=== PATIENT | male | born 1955 | race Caucasian/White ===

== ENCOUNTER 2017-03-23 15:06 | Emergency (ER) | payer OTHER ==
[~2017-03-23] VITALS: Ht 175.3 cm; Wt 89.8 kg
--- NOTE | 2017-03-23 16:09 | ED DYSPNEA/ASTHMA COMPLAINT ---
History of Present Illness General Chief Complaint: Upper Respiratory Sx/Fever Stated Complaint: URI Source: patient Exam Limitations: no limitations Vital Signs & Intake/Output Vital Signs & Intake/Output Vital Signs Date Time Temp Pulse Resp B/P B/P Pulse O2 O2 Flow FiO2 Mean Ox Delivery Rate 03/23 1859 98.0 100 18 147/78 97 Room Air 03/23 1733 98 03/23 1701 98 03/23 1629 Room Air 03/23 1511 97.9 106 18 147/80 96 Room Air Allergies Coded Allergies: acetaminophen (Intermediate, NAUSE 03/23/17) hydrocodone (Intermediate, NAUSEA 03/23/17) Reconcile Medications Codeine Phosphate/Guaifenesi (Cheratussin AC Syrup) 10 MG-100 MG/5 ML LIQUID 10 ML PO Q6H PRN COUGH Doxycycline Hyclate 100 MG TABLET 1 TAB PO BID PRN BRONCHITIS Duloxetine HCl 60 MG CAPSULE. 1 CAP PO DAILY ANXIETY (Reported) Hydrocodone/Chlorphen P-Stirex (Hydrocodone-Chlorphen ER Susp) 10 MG-8 MG/5 ML KYLE.ER.12H 5 ML PO BID PRN COUGH Prednisone 50 MG TABLET 1 TAB PO DAILY bronchitis Triage Note: 61 YO MALE TO [facility] C/O PRODUCTIVE COUGH AND HEADACHE X2 WEEKS. STATES HE WAS ON ANTIBITOCS FROM HIS PCP BUT STILL NOT ANY BETTER. AFEBRILE. Triage Nurses Notes Reviewed? yes Onset: Abrupt Duration: week(s): (2), changing over time, continues in ED, getting worse Timing: single episode today Severity: moderate, severe Activities at Onset: none Prior Episodes/Possible Cause: occasional episodes Associated Symptoms: cough, wheezing, Headache HPI: 61-year-old male with no past medical history presents for evaluation of cough, congestion, headaches and wheezing over the past 2 weeks. Patient states that he was seen by his primary care doctor last week for the same symptoms. He is placed on a Z-Frandy and given cough medicine without any improvement. He states that the cough is productive of sputum and is worse at night causing difficulty sleeping. He also reports headaches from coughing so much. He is a nonsmoker and denies any history of asthma or COPD. He does report that usually once a year he gets an episode of severe bronchitis. He has an albuterol inhaler at home which she has been using every 4 hours without improvement. No hemoptysis, chest pain, fever, lower extremity edema or any other associated symptoms. No recent surgery recent trauma. (Nathan Stout) Past History Travel History Traveled to [place] past 21 day No Medical History Any Pertinent Medical History? see below for history Neurological: NONE EENT: NONE Cardiovascular: NONE Respiratory: NONE Gastrointestinal: NONE Hepatic: NONE Renal: NONE Musculoskeletal: NONE Psychiatric: NONE Endocrine: NONE Blood Disorders: NONE Cancer(s): NONE TOBACCO CLASSER/Reproductive: NONE Pneumonia Vaccine: 01/03/10 Surgical History Surgical History: non-contributory Psychosocial History Who do you live with Patient/Self Services at Home None What is your primary language Lebanese Tobacco Use: Current Daily Use Daily Tobacco Use Amount/Type: =< 4 Cigarettes daily Family History Hx Contributory? No (Nathan Stout) Review of Systems Review of Systems Constitutional: Reports: no symptoms. EENTM: Reports: no symptoms. Respiratory: Reports: see HPI, cough, sputum production, wheezing. Cardiovascular: Reports: no symptoms. GI: Reports: no symptoms. Genitourinary: Reports: no symptoms. Musculoskeletal: Reports: no symptoms. Skin: Reports: no symptoms. Neurological/Psychological: Reports: headache. Hematologic/Endocrine: Reports: no symptoms. Immunologic/Allergic: Reports: no symptoms. All Other Systems: Reviewed and Negative (Nathan Stout) Physical Exam Physical Exam General Appearance: well developed/nourished, no apparent distress, alert, awake Head: atraumatic, normal appearance Eyes: Bilateral: normal appearance, PERRL, EOMI. Ears, Nose, Throat: normal pharynx, hearing grossly normal, nasal congestion Neck: normal inspection, supple, full range of motion Respiratory: chest non-tender, no respiratory distress, rhonchi, wheezing ( diffuse ) Cardiovascular: regular rate/rhythm (rate 102), normal peripheral pulses Peripheral Pulses: 2+ radial (R), 2+ radial (L) Gastrointestinal: normal bowel sounds, soft, non-tender, no organomegaly Extremities: normal inspection, normal range of motion, no edema Neurologic/Psych: no motor/sensory deficits, awake, alert, oriented x 3, normal gait Skin: intact, normal color, warm/dry Core Measures ACS in differential dx? No CVA/TIA Diagnosis No Sepsis Present: No Sepsis Focused Exam Completed? No (Nathan Stout) Progress Differential Diagnosis: asthma, bronchitis, CHF, COPD, pulmonary embolism, pneumonia, influenza Plan of Care: Orders Procedure Date/time Status COMPREHENSIVE METABOLIC PANEL 03/23 175 Complete CBC WITHOUT DIFFERENTIAL 03/23 1755 Complete RAPID VIRAL INFLUENZA A 03/23 1711 Complete Current Medications Sig/Kassi Start time Last Medication Dose Stop Time Status Admin Magnesium Sulfate 1 GM ONCE ONE 03/23 1800 AC 03/23 (Mag Sulfate in D5) 03/23 2158 181 Dextrose/Water 100 ML (D5W) Laboratory Tests 03/23/17 180: Anion Gap 15, Estimated GFR > 60, BUN/Creatinine Ratio 22.2, Glucose 109 H, Calcium 10.1, Total Bilirubin 0.9, AST 25, ALT 38, Alkaline Phosphatase 59, Total Protein 7.5, Albumin 4.8, Globulin 2.7, Albumin/Globulin Ratio 1.8, CBC w Diff NO MAN DIFF REQ, RBC 4.97, MCV 92.3, MCH 30.5, RDW 14.5, MPV 9.9, Gran % 77.1 H, Lymphocytes % 16.4 L, Monocytes % 6.0, Eosinophils % 0.2, Basophils % 0.3, Absolute Granulocytes 9.9 H, Absolute Lymphocytes 2.1, Absolute Monocytes 0.8 H, Absolute Eosinophils 0, Absolute Basophils 0, PUBS MCHC 33.1 Microbiology 03/23 1749 NASOPHARYN: Influenza Virus A & B Rapid Smear - COMP Patient seen and evaluated. He has diffuse wheezing and rhonchi auscultated bilaterally. He is not hypoxic. He is not tripoding. He denies any chest pain. He has no history of hypertension hyperlipidemia or diabetes. He is a nonsmoker. No recent surgery recent trauma. He is speaking in full sentences. Patient was given a continuous nebulizer Solu-Medrol and magnesium with some improvement. Patient does not have pneumonia on the chest x-ray and his blood work is within normal limits. Patient was ambulated in the emergency department and did not desaturate. No cyanosis. Patient will be given a prescription for doxycycline, prednisone burst, hydrocodone cough suppressant. Advised him to rest and plenty of fluids Tylenol and ibuprofen for pain or fevers. Pro-air inhaler 2 puffs every 4-6 hours. Make a follow-up with the primary care doctor. Discussed return precautions in detail including signs of hypoxia and pneumonia. Patient is nontoxic-appearing and agrees with the plan. Diagnostic Imaging: Viewed by Me: Radiology Read. Discussed w/RAD: Radiology Read. CXR Impression: PATIENT: LEWIS CUNNINGHAM PRESENT AGE: 61 PATIENT ACCOUNT NO: [id number] : 59 LOCATION: [facility] ORDERING PHYSICIAN: Nathan CROUCH SERVICE DATE: 03/23/17 EXAM TYPE: RAD - XRY-CHEST XRAY, TWO VIEWS EXAMINATION: XR CHEST CLINICAL INFORMATION: Cough, shortness of breath. Fever. COMPARISON: Chest x-ray 12/04/2016 TECHNIQUE: 2 views of the chest were obtained. FINDINGS: Asymmetric elevation of left diaphragm to right. Surgical clips over the GE junction area and left side of chest. Heart size is normal. Cardiac and mediastinal contours normal. No acute abnormality. No pulmonary vascular congestion. No infiltrate or pleural effusion. No pneumothorax. 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 IMPRESSION: No acute abnormality of the chest. DICTATED BY: Franck Dan MD DATE /TIME DICTATED:03/23/171642 SUPERVISOR RECORD PRESS:DICKSON DATE/TIME TRANSCRIBED: 03/23/171642 CONFIDENTIAL, DO NOT COPY WITHOUT APPROPRIATE AUTHORIZATION. Initial ED EKG: none (Nathan Stout) Departure Departure Disposition: HOME OR SELF CARE Condition: Stable Clinical Impression Primary Impression: Acute bronchitis Qualifiers: Bronchitis organism: unspecified organism Qualified Code: J20.9 - Acute bronchitis, unspecified Referrals: Son Drake MD (PCP/Family) Additional Instructions: Rest and drink plenty of fluids. Take antibiotics and steroids as directed for the full course. Tylenol ibuprofen as needed for pain/fever. Make a follow-up with your primary care doctor as soon as possible. Monitor symptoms return with any concerns. Departure Forms: Customer Survey General Discharge Information Prescriptions: Current Visit Scripts Prednisone 1 TAB PO DAILY #5 TAB Codeine Phosphate/Guaifenesi (Cheratussin AC Syrup) 10 ML PO Q6H PRN COUGH #240 ML Doxycycline Hyclate 1 TAB PO BID PRN BRONCHITIS #20 TAB Hydrocodone/Chlorphen P-Stirex (Hydrocodone-Chlorphen ER Susp) 5 ML PO BID PRN COUGH #100 ML (Nathan Stout) PA/FOILING MACHINE OPERATOR Co-Sign Statement Statement: ED Attending supervision documentation- [] I saw and evaluated the patient. I have also reviewed all the pertinent lab results and diagnostic results. I agree with the findings and the plan of care as documented in the PA's/FOILING MACHINE OPERATOR's documentation. [x] I have reviewed the ED Record and agree with the PA's/FOILING MACHINE OPERATOR's documentation. [] Additions or exceptions (if any) to the PAs/FOILING MACHINE OPERATOR's note and plan are summarized below: [] (Fatuma ROMERO,Sulaiman Sandoval) Critical Care Note Critical Care Note Critical Care Time: non-applicable (Nathan Stout)
--- NOTE | 2017-03-23 16:49 | RADIOLOGY REPORT ---
EXAMINATION: XR CHEST CLINICAL INFORMATION: Cough, shortness of breath. Fever. COMPARISON: Chest x-ray 12/04/2016 TECHNIQUE: 2 views of the chest were obtained. FINDINGS: Asymmetric elevation of left diaphragm to right. Surgical clips over the GE junction area and left side of chest. Heart size is normal. Cardiac and mediastinal contours normal. No acute abnormality. No pulmonary vascular congestion. No infiltrate or pleural effusion. No pneumothorax. 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 IMPRESSION: No acute abnormality of the chest.
[2017-03-23 18:22] LABS: ABSOLUTE BASOPHIL COUNT 0 /CUMM (0.0-0.2); ABSOLUTE EOSINOPHIL COUNT 0 /CUMM (0.0-0.7); ABSOLUTE GRANULOCYTE CT 9.9 /CUMM (1.4-6.5); ABSOLUTE LYMPH COUNT 2.1 /CUMM (1.2-3.4); ABSOLUTE MONOCYTE COUNT 0.8 /CUMM (0.10-0.60); BASOPHIL % 0.3 % (0.0-2.0); EOSINOPHIL % 0.2 % (0-5); GRANULOCYTE % 77.1 % (42.2-75.2); HEMATOCRIT 45.8 % (42-52); MEAN CORPUSCULAR HGB 30.5 PG (27.0-31.0); MEAN CORPUSCULAR HGB CONC 33.1 G/DL (33.0-37.0); MEAN CORPUSCULAR VOLUME 92.3 FL (80.0-94.0); MEAN PLATELET VOLUME 9.9 FL (7.4-10.4); PLATELET COUNT 215 /CUMM (130-400); RBC DISTRIBUTION WIDTH 14.5 % (11.5-14.5); RED BLOOD CELL CT 4.97 /CUMM (4.70-6.10); WHITE BLOOD CELL COUNT 12.8 /CUMM (4.8-10.8)
[2017-03-23 18:59] VITALS: BP 147/78
[2017-03-23] MEDS ORDERED: CHERATUSSIN AC118 M1 PO (18:59)
[2017-03-23] MEDS ORDERED: DOXYCYCLINE HY100 M4 PO (18:59)
[2017-03-23] MEDS ORDERED: PREDNISONE50 M1 PO (18:59)
[2017-03-23] MEDS ORDERED: HYDROCODONE-CH115 ML PO (19:24)
[2017-03-23] MEDS ORDERED: DULOXETINE HCL60 MG PO (19:38)
== END 2017-03-23 19:38 ==
LOC: ERH 15:06
PROVIDERS: Physician Assistant Medical
DX: J20.9 Acute bronchitis, unspecified (principal); Z72.0 Tobacco use
CPT/HCPCS: 1263; 1426; 71046; 87804; 87804-59; 94644; 96374